=== PATIENT | male | born 1955 | race Caucasian/White ===

== ENCOUNTER → 2025-02-10 11:55 | Outpatient (CLI) | payer MEDICARE, OTHER, SELFPAY ==
--- NOTE | 2025-02-10 11:59 | DI.NM.S_ITS ---
PROCEDURE: NM CALLIE PERF SPECT R&S PHARM Rest and pharmacological stress myocardial perfusion SPECT with gated imaging and ejection fraction RADIOPHARMACEUTICAL: 25.6 mCi Tc-99m tetrafosmin IV at rest and 27.1 mCi Tc-99m tetrafosmin IV at peak effect of pharmacological stress. [id number] was performed. INDICATIONS: Acute systolic congestive heart failure PQRS ATTESTATIONS: Measure 322 - Is this imaging test primarily performed on a low-risk surgery patient for preoperative evaluation within 30 days preceding their low-risk non-cardiac surgery? Low-risk surgery is defined as cardiac or myocardial infarction less than 1%, including (but not limited to) endoscopic procedures, superficial procedures, cataract surgery, and excisional breast surgery: Answer: No Measure 323 - Is this imaging test performed primarily for the monitoring of an asymptomatic patient who had percutaneous coronary intervention on the visit date or within 2 years of the visit date? Answer: No Measure 324 - Is this imaging test performed primarily for the initial detection and risk assessment on an asymptomatic, low coronary heart disease patient? Low CHD risk definition = clinicians should consider the maximum number of available patient factors used to estimate risk based on [place] (ATP III criteria), typically age, gender, diabetes, smoking status, and use of blood pressure medication, and integrate age appropriate estimates for missing elements, such as LDL or standard blood pressure. Answer: No TECHNIQUE: Radiopharmaceutical was injected at peak stress test, and also at rest. SPECT images were obtained. SPECT myocardial perfusion images were displayed in short axis, horizontal long axis, and vertical long axis views. Gated images were reviewed using [employer] software. COMPARISON: None. CARDIAC STRESS: A pharmacologic stress test was performed under the supervision of an attending staff, using an infusion of 0.4 mg of Lexiscan. Hemodynamic data: There is normal blood pressure and heart rate response to pharmacologic stress. Symptoms: The patient denied anginal chest pain. Aminophylline: None EKG: No diagnostic changes of ischemia; no ectopy. Baseline ECG demonstrated atrial fibrillation. FINDINGS: Raw data: There is good myocardial uptake of radiotracer. No significant motion artifacts. Mgiz-en-wdchw ratio is 0.36 (normal is less than 0.38 for tetrafosmin tracer). Left ventricle function: Gated images demonstrate normal left ventricular wall thickening. No segmental wall motion abnormalities. No transient ischemic dilation; TID is 0.94 (normal less than 1.3). Left ventricle resting end diastolic volume is 225 mL. Left ventricle stress ejection fraction is 36; normal range is above 45%. Myocardial perfusion: Resting images had severe hypoperfusion in the entire inferior and apical segments. Stress images had slight worsening of the hypoperfusion in the basal inferior segment with the mid to distal inferior and apical segments having the same hypoperfusion as in rest images. Prone images demonstrated slight improvement of perfusion in the inferior and apical segments when compared to the stress images. IMPRESSION: 1. Nontransmural inferior and apical infarction with no significant preston-infarct ischemia. 2. Moderately compromised left ventricular systolic function. 3. High risk stress test due to the presence of large perfusion defects and abnormal left ventricular systolic function. Dictated by: Akbar Iniguez M.D. on 02/11/2025 at 16:35 Approved by: Akbar Iniguez M.D. on 02/11/2025 at 16:39
== END ==
PROVIDERS: PCP Student in an Organized Health Care Education/Training Program; Referring Provider Student in an Organized Health Care Education/Training Program; Visit Provider Student in an Organized Health Care Education/Training Program
DX: R94.39 Abnormal result of other cardiovascular function study (principal); I50.21 Acute systolic (congestive) heart failure; I21.4 Non-ST elevation (NSTEMI) myocardial infarction; I51.9 Heart disease, unspecified
CPT/HCPCS: 78452; 93017; A9502; J2785